=== PATIENT | male | born 1985 | race Hispanic/Latino ===

== ENCOUNTER 2024-06-07 16:01 | Emergency (ER) | payer OTHER ==
[2024-06-07] MEDS ORDERED: Lidocaine 1% (PF) 30 ML VIAL ONE (16:23)
== END 2024-06-07 17:10 | disposition home or self-care (01) ==
LOC: NAV ERS 16:01
DX: S61.412A Laceration without foreign body of left hand, initial encounter (principal); E11.9 Type 2 diabetes mellitus without complications; Z79.84 Long term (current) use of oral hypoglycemic drugs; W25.XXXA Contact with sharp glass, initial encounter
CPT/HCPCS: 12002; J2001